=== PATIENT | male | born 2000 | race Caucasian/White ===

== ENCOUNTER → 2022-10-16 11:16 | Outpatient (BNVA) | payer BC, SELFPAY | PROVIDERS: Family Provider Nurse Practitioner; PCP Nurse Practitioner Family; Visit Provider Nurse Practitioner Family | DX: R19.8 Other specified symptoms and signs involving the digestive system and abdomen (principal) | CPT/HCPCS: 86677 ==

== ENCOUNTER 2023-11-02 11:59 | Emergency (ER) | payer BC, MEDICAID, SELFPAY ==
[2023-11-02 12:15] VITALS: BP 111/66; PULSE 55; TEMP 36.4; O2SAT 100; BMI 18.8
[2023-11-02 12:54] VITALS: BP 109/54
--- NOTE | 2023-11-02 12:54 | ED_ITS ---
HPI - Abdominal Pain General: Chief Complaint: Abdominal Pain Stated Complaint: blow to stomach (refusing wc) Time Seen by Provider: 11/02/23 12:27 Source: patient Mode of arrival: ambulatory Limitations: no limitations History of Present Illness: Patient is a 23-year-old male presents to ED today with complaint of lower abdominal pain after experiencing a blow to the lower abdomen while at work. P atient states he works at a [employer] and states another individual was running a board through the saw when the board somehow kicked loose and struck patient in his lower abdomen. Patient states the blow knocked him backwards. He immediately felt pain and felt some lightheadedness and dizziness. He states that has since subsided and is now left with pain. Pain is worse with movement and ambulation. He has urinated several times and no hematuria noted. MD elicited complaint: abdominal pain Pertinent past history: none Onset (ago): hour(s) Pain Consistency: constant Location: Suprapubic Severity: moderate Radiation: none Migration to: no migration Exacerbating factors: movement and other (walking) Relieving factors: nothing Associated Symptoms: Reports no associated symptoms; Denies chills, diarrhea, fever(s), hematuria, nausea and vomiting Review of Systems Const: Denies: fever(s), chills, body aches, fatigue or malaise Card: Denies: chest pain Resp: Denies: dyspnea GI: Reports: abdominal pain; Denies: nausea, vomiting or diarrhea : Denies: flank pain, urinary hesitancy or hematuria Musc: Denies: neck pain, back pain, extremity pain or joint pain Neuro: Denies: numbness in extremities, weakness in extremities, sensory changes or difficulty walking Physical Exam Const: COMMON NORMALS: no acute distress, average body habitus, patient oriented x3, no limitations, healthy appearing, alert and well nourished Resp: COMMON NORMALS: normal respiratory effort and clear to auscultation bilaterally AUSCULTATION: clear to auscultation bilaterally Cardio: COMMON NORMALS: regular rate and regular rhythm RATE: regular rate RHYTHM: regular rhythm GI: COMMON NORMALS: Normal to inspection, nondistended, normoactive bowel sounds present, Soft to palpation, No hepatosplenomegaly present and no masses INSPECTION: Yes normal to inspection AUSCULTATION: Yes normoactive bowel sounds PALPATION: Yes Soft to palpation, Yes Tenderness to palpation present (GI) (lower abdomen), No Guarding due to palpation present (GI), No Rigid due to palpation and Yes No hepatosplenomegaly present OTHER: no external signs of trauma Back/Pelvis: COMMON NORMALS: thoracic and lumbar spine normal to inspection Extremity: GENERAL: Yes normal exam except as noted Neuro: COMMON NORMALS: patient oriented x3, moves all extremities, no focal motor deficits, no sensory deficits noted and gait normal SENSORIUM/ORIENTATION: Yes alert Skin: NARRATIVE SKIN EXAM: no ecchymosis TRAUMA: no lacerations or abrasions Course Vital Signs: Vital signs: Vital Signs Temperature 97.6 F 11/02/23 12:15 Pulse Rate 55 L 11/02/23 12:15 Blood Pressure 109/54 11/02/23 12:54 Pulse Oximetry 100 11/02/23 12:15 Oxygen Delivery Me thod Room Air 11/02/23 12:15 MDM - Abdominal Pain Medical Decision Making After one IV attempt patient is refusing CT imaging. Offered CT scan without contrast or even US but patient refuses. He states that all his pain is gone and wants to go home. Risks discussed and patient verbalized understanding. Strict return to ED precautions discussed with patient and family. Medical Records I reviewed the patient's medical records. No radiology studies performed this visit (pt refused) Discharge Plan Discharge Patient Disposition: Home Clinical Impression: Abdominal contusion Qualifiers: Encounter type: initial encounter Qualified Code(s): S30.1XXA - Contusion of abdominal wall, initial encounter Condition: Stable Prescriptions: No Action omeprazole magnesium [Prilosec OTC] 20 mg tablet,delayed release (DR/EC) 20 mg PO DAILY Qty: 30 1RF Discharge Orders: Discharge ED (Routine); Ordered 11/02/23 Ordered By: Lynn Bañuelos Referrals: Marcello Gonzalez FNP [Primary Care Provider] - Activity Restrictions/Additional Instructions: As we discussed you have refused imaging at this time. Recommend he keep a close eye on symptoms at home. You need to return to the emergency department for worsening abdominal pain, urinating or defecating blood, lightheadedness/dizziness/passing out episodes, generally feeling worse or unwell, or any other concerns you may have. Coding Level of Care Code ED [employer] for [facility] [employer]y
--- NOTE | 2023-11-02 13:31 | PC.NURSE ---
this nurse attempted iv for ct, pt stated he can't take it. pt states it was too painful while this nurse was attempting to flush in IV. pt stated he doesn't want an IV, his pain is gone, and doesn't want the CT test. pt provider notified.
== END 2023-11-02 13:32 | disposition home or self-care (01) ==
PROVIDERS: Emergency Provider Physician Assistant; PCP Nurse Practitioner Family
DX: S30.1XXA Contusion of abdominal wall, initial encounter (principal); W20.8XXA Other cause of strike by thrown, projected or falling object, initial encounter; Y99.0 Civilian activity done for income or pay
CPT/HCPCS: 99281